=== PATIENT | female | born 1990 | race African-American/Black ===

== ENCOUNTER 2018-04-12 06:22 | Inpatient (IN) ==
[2018-04-12] MEDS ORDERED: PITOCIN ONE (06:27)
[2018-04-12] MEDS ORDERED: D5LR 1L W PITOCIN 10 UNITS/L 10 UNITS/1,000 ML BAG IV ONE (06:27)
[2018-04-12] MEDS ORDERED: D5 1/2 NS 1L W PITOCIN 20 UNITS/L 20 UNITS/1,000 ML BAG IV ONE (06:27)
[2018-04-12] MEDS ORDERED: D5 1/2 NS 1000 ML 1,000 ML IV ONE (06:27)
[2018-04-12] MEDS ORDERED: NUBAIN INJ 200 MG VIAL MULTIDOSE IVP PRN (06:34)
[2018-04-12] MEDS ORDERED: REGLAN INJ 10 MG VIAL IVP PRN (06:34)
[2018-04-12] MEDS ORDERED: D5LR 1L W PITOCIN 10 UNITS/L 10 UNITS/1,000 ML BAG IV PRN (06:34)
[2018-04-12] MEDS ORDERED: MORPHINE SULFATE INJ 2 MG INJ IVP PRN (06:34)
[2018-04-12] MEDS ORDERED: D5 1/2 NS 1000 ML 1,000 ML IV SCH (06:34)
[2018-04-12] MEDS ORDERED: PITOCIN IVP ONE (06:34)
[2018-04-12] MEDS ORDERED: PHENERGAN INJ 25 MG IV PRN ×2 (06:34→15:01)
--- NOTE | 2018-04-12 06:57 | DR.OB ---
OB Quick Note - Assessment/Plan Assessment/Plan: L&D 04/12/18 at 6:50am S-No complaint. O-Afebrile,VSS [id number] with good LTV, +accel, no decel. CTX=occasional,mild CVX=1cm/75%/-1/VTX AROM with clear fluid. IUPC and FSE placed. A-IUP at 38 5/7 weeks for induction h/o PE P-Begin pitocin induction Anticipate
[2018-04-12] MEDS ORDERED: ADRENALINE CHL INJ ONE (08:06)
[2018-04-12] MEDS ORDERED: LR 1000 ML IV 1,000 ML IV ONE (08:06)
[2018-04-12] MEDS ORDERED: XYLOCAINE 1 % (PLAIN) ONE (08:06)
[2018-04-12] MEDS ORDERED: XYLOCAINE-MPF 1% ONE (08:06)
[2018-04-12] MEDS ORDERED: NAROPIN EPIDURAL 0.2% + FENTANYL 90MCG 60 ML EPI ONE (08:07)
[2018-04-12] MEDS ORDERED: FENTANYL INJ 100 mcg ONE (08:07)
[2018-04-12] MEDS ORDERED: HYDROGEN PEROXIDE 3% ONE (15:00)
[2018-04-12] MEDS ORDERED: ZOFRAN INJ 4 MG VIAL ONE (15:13)
[2018-04-12] MEDS ORDERED: D5 1/2 NS 1000 ML 1,000 ML with PITOCIN 20 UNITS IV SCH ×2 (16:00)
[2018-04-12] MEDS ORDERED: MILK OF MAGNESIA PO PRN (16:18)
[2018-04-12] MEDS ORDERED: DERMOPLAST SPRAY TOP PRN (16:18)
[2018-04-12] MEDS ORDERED: ADACEL or BOOSTRIX TDaP VACCINE IM ONE (16:18)
[2018-04-12] MEDS ORDERED: AMBIEN PO PRN (16:18)
--- NOTE | 2018-04-12 16:55 | DR.OB ---
OB Quick Note - Assessment/Plan Assessment/Plan: L&D 04/12/18 at 12:24pm Pitocin=10mu/min. S-No complaint. s/p epidural. O-Afebrile,VSS [id number] with good LTV, +accel, no decel. CTX=q 1 1/2 min., about 55-65mmHg CVX=4cm/100%/0 A-IUP at 38 5/7 weeks for induction H/O PE P-Cont. pitocin induction Anticipate
--- NOTE | 2018-04-12 17:02 | DR.OB ---
OB Quick Note - Assessment/Plan Assessment/Plan: Delivery Note APPLICATION ARCHITECT 04/12/18 at 2:41pm Patient complete and pushing with bradycardia noted. Head directly OP. Vacuum applied with good progress but popped off the next 2 attempts. Low forceps applied (Simpsonjeanna) with good fit. Head delivered with 2 CTX and forceps released. Head delivered over intact perineum. Nose and mouth bulb suctioned. No nuchal cord. Body delivered over intact perineum. Cord clamped x 2 and cut. Infant handed to attendant. Cord sent for gases. Placenta delivered spontaneously / intact / 3 vessel cord. No CVX tears noted. A second degree midline tear repaired with 0-vicryl in usual fashion. Viable female , VTX/OP, wt=6'12" and 9/9, stable to NBN. Mother stable to RR. [id number]. Infant vigorous and moving all extremities.
[2018-04-12] MEDS: MOTRIN TAB 800 MG PO PRN (17:23)
[2018-04-12] MEDS: ZANTAC PO SCH (21:02)
[2018-04-13] MEDS: MOTRIN TAB 800 MG PO PRN (02:50)
[2018-04-13 05:30] LABS: HEMATOCRIT 27.2 % (36.0-47.0)
[2018-04-13 05:51] LABS: HEMOGLOBIN 9.6 g/dL (12.0-16.0)
[2018-04-13] MEDS: LOVENOX INJ 40 MG SYR SC SCH (09:27)
[2018-04-13] MEDS: COLACE CAP 100 MG PO SCH ×2 (09:28→21:10)
[2018-04-13] MEDS: PRENATAL PLUS PO SCH (09:28)
[2018-04-13] MEDS: ZANTAC PO SCH ×2 (09:28→21:10)
[2018-04-13] MEDS: PERCOCET TAB 5/325 MG PO PRN ×2 (10:09→21:10)
[2018-04-13] MEDS: FERROUS GLUCONATE PO SCH (16:44)
[2018-04-14] MEDS: PERCOCET TAB 5/325 MG PO PRN ×2 (05:02→11:16)
[2018-04-14] MEDS: FERROUS GLUCONATE PO SCH (06:01)
[2018-04-14] MEDS: ZANTAC PO SCH (08:19)
[2018-04-14] MEDS: PRENATAL PLUS PO SCH (08:19)
[2018-04-14] MEDS: COLACE CAP 100 MG PO SCH (08:19)
[2018-04-14] MEDS: LOVENOX INJ 40 MG SYR SC SCH (08:19)
[2018-04-14 12:05] VITALS: BP 141/85
== END 2018-04-14 13:45 | disposition home or self-care (01) | DRG 807 ==
LOC: LD 06:22 → MED/SURG 16:14
PROVIDERS: ADMIT Specialist; ATTEND Specialist
DX: R00.1 Bradycardia, unspecified; O70.1 Second degree perineal laceration during delivery; Z86.711 Personal history of pulmonary embolism; Z37.0 Single live birth; O75.89 Other specified complications of labor and delivery; Z3A.38 38 weeks gestation of pregnancy; Z79.01 Long term (current) use of anticoagulants; Z23 Encounter for immunization
CPT/HCPCS: 36415; 59409; 85014; 85018; 90715; A4216; A4222; S0197; J0171; J1650; J2405; J2590; J3010; J7120; S5010